=== PATIENT | female | born 1935 | race Caucasian/White ===

== ENCOUNTER → 2017-03-07 09:13 | Outpatient (CLI) | payer MEDICARE, BC | END | disposition home or self-care (01) | LOC: D.US 09:13 | DX: R10.13 Epigastric pain (principal) ==

== ENCOUNTER → 2017-03-11 13:33 | Outpatient (CLI) | payer MEDICARE, BC | END | disposition home or self-care (01) | LOC: D.LAB 10:30 | DX: K31.89 Other diseases of stomach and duodenum (principal) ==